=== PATIENT | female | born 1950 | race Two or more races ===

== ENCOUNTER 2019-01-21 17:32 | Emergency (ER) | payer MEDICARE ==
[~2019-01-21] VITALS: Ht 157.5 cm; Wt 68.0 kg
[2019-01-21 17:37] VITALS: BP 150/80
--- NOTE | 2019-01-21 17:47 | NUR ---
ED Nurse Note: Pt came in due to right foot laceration. pt dropped scissor son her right foot and acquired a puncture laceration. No active bleeding. AAO x,4 and ambulatory.
[2019-01-21] MEDS ORDERED: Tetanus/Diptheria/Pertussis IM ONE (18:00)
--- NOTE | 2019-01-21 18:03 | Emergency Room Report ---
History of Present Illness General Chief Complaint: Laceration Source: Patient Present Illness HPI 68-year-old female presents to the emergency department complaining of 7 out of 10 severity localized pain to the dorsum of the right foot distally just proximal to the digits. Patient states status post dropped garden scissors onto her foot which caused her to sustain a laceration. Patient reports bleeding is controlled at this time. She denies taking blood thinning medications. she reports she is not up-to-date with her tetanus vaccination. She is able to bear weight on the foot and walk. She denies suspicion for possible fracture. Patient denies bony pain/tenderness. Pain exacerbated upon palpation no other aggravating or relieving factors. Allergies: Coded Allergies: No Known Allergies (Unverified , 01/21/19) Patient History Past Medical History: see triage record Past Surgical History: none Pertinent Family History: none Now: No Reviewed Nursing Documentation: PMH: Agreed; PSxH: Agreed Nursing Documentation-PMH Past Medical History: No History, Except For Hx Cardiac Problems: Yes - High cholesterol Hx Hypertension: Yes History Of Psychiatric Problem: Yes - Anxiety, Depression Review of Systems All Other Systems: negative except mentioned in HPI Physical Exam Vital Signs Date Time Temp Pulse Resp B/P (MAP) Pulse Ox O2 Delivery O2 Flow Rate FiO2 01/21/19 17:37 98.1 67 20 150/80 (103) 98 Room Air Sp02 EP Interpretation: reviewed, normal General Appearance: no apparent distress, alert, GCS 15, non-toxic Head: normocephalic, atraumatic Eyes: bilateral eye normal inspection, bilateral eye PERRL ENT: hearing grossly normal, normal voice Neck: full range of motion Respiratory: lungs clear, normal breath sounds, speaking full sentences Cardiovascular #1: regular rate, rhythm, normal capillary refill Cardiovascular #2: 2+ dorsalis pedis (R), 2+ dorsalis pedis (L) Musculoskeletal: back normal, gait/station normal, normal range of motion, non- tender - no bony ttp, able to bear weight, flex and extend . Neurologic: alert, oriented x3, responsive, motor strength/tone normal, sensory intact, speech normal, grossly normal Psychiatric: judgement/insight normal Skin: laceration - 0.5 cm laceration that is well approximated and not bleeding at this time. tension pulled to see how deep the wound is and to evaluate for fb. no fb. the wound is not bleeding. Procedures Laceration/Wound Repair Laceration/Wound Repair : Consent: Verbal Wound Location: lower extremity - right dorsal foot Wound's Depth, Shape: superficial, linear Wound Length (cm): 0 Wound Explored: clean Irrigated w/ Saline (ccs): 200 Betadine Prep?: Yes Wound Debrided: None Wound Repaired With: Dermabond Sterile Dressing Applied?: Yes Splint Applied?: No Sling Applied?: No Patient Tolerated: Well Complications: None Medical Decision Making PA Attestation Dr. Fontana Is my supervising Physician whom patient management has been discussed with. Diagnostic Impression: Primary Impression: Laceration ER Course 68-year-old female presents to the emergency department complaining of 7 out of 10 severity localized pain to the dorsum of the right foot distally just proximal to the digits. Patient states status post dropped garden scissors onto her foot which caused her to sustain a laceration. Patient reports bleeding is controlled at this time. She denies taking blood thinning medications. she reports she is not up-to-date with her tetanus vaccination. She is able to bear weight on the foot and walk. She denies suspicion for possible fracture. Patient denies bony pain/tenderness. Pain exacerbated upon palpation no other aggravating or relieving factors. Ddx considered but are not limited to laceration, tendon injury, cellulitis, amputation, foreign body just to name a few. Vital signs: are WNL, pt. is afebrile H&PE are most consistent with: superficial 0.5cm laceration to the dorsum of the right foot ORDERS: none required at this time, the diagnosis is clinical ED INTERVENTIONS: -Tetanus vaccine was administered as pt. vaccination status was unknown. - The wound was copiously irrigated with normal saline, and explored for foreign body for which no FB was found. - The wound was approximated and closed using Dermabond -sterile dressing is applied. Pt. given hard sole ortho shoe and cane Discussed with patient: That we make every effort to approximate the laceration as best as we can so that scarring will be as cosmetically pleasing as possible with our limited cosmetic skill set in the Emergency dept. Regardless of our best efforts there will be scarring after laceration repair. The extent of scarring is unknown at this time. DISCHARGE: At this time pt. is stable for d/c to home. Will provide printed patient care instructions, and any necessary prescriptions. Care plan and follow up instructions have been discussed with the patient prior to discharge. Last Vital Signs Date Time Temp Pulse Resp B/P (MAP) Pulse Ox O2 Delivery O2 Flow Rate FiO2 01/21/19 17:37 98.1 67 20 150/80 98 Room Air Disposition: HOME, SELF-CARE Condition: Stable Scripts Acetaminophen* (TYLENOL EXTRA STRENGTH*) 500 Mg Tablet 500 MG ORAL Q6H, #20 TAB 0 Refills Prov: Jennifer Tinoco 01/21/19 Cephalexin* (KEFLEX*) 500 Mg Capsule 500 MG ORAL EVERY 12 HOURS for 7 Days, #14 CAP 0 Refills Prov: Jennifer Tinoco 01/21/19 Patient Instructions: Nonsutured Laceration Care Additional Instructions: Take medications as directed. Follow up with a Primary Care Provider in 3-5 days, even if your symptoms have resolved. --Please review list of primary care clinics, if you do not already have a primary care provider Return sooner to ED if new symptoms occur, or current symptoms become worse. - Please note that this Emergency Department Report was dictated using [employer] technology software, occasionally this can lead to erroneous entry secondary to interpretation by the dictation equipment. Jennifer Tinoco Jan 21, 2019 18:03
--- NOTE | 2019-01-21 18:31 | NUR ---
ED Nurse Note: Irrigated right foot dried blood with NS and hydrogen peroxide. Patted dry and left open to air.
[2019-01-21] MEDS ORDERED: CEPHALEXIN500 MG ORAL (18:58)
[2019-01-21] MEDS ORDERED: TYLENOL EXTRA500 MG ORAL (18:58)
--- NOTE | 2019-01-21 19:15 | NUR ---
HAND-OFF: Report given to Marta REEVES.
--- NOTE | 2019-01-21 19:40 | NUR ---
ER DISCHARGE NOTE: Patient is cleared to be discharged per ERMD, pt is aox4, on room air, with stable vital signs. provided wound care. pt was given dc and prescription instructions, pt was able to verbalize understanding, pt id bandremoved. pt is able to ambulate with steady gait. pt took all belongings.
[2019-01-21 19:41] VITALS: BP 150/80
== END 2019-01-21 19:41 | disposition home or self-care (01) ==
LOC: EDBD 17:32 → EMR 19:30
DX: S91.311A Laceration without foreign body, right foot, initial encounter (principal); I10 Essential (primary) hypertension; F32.9 Major depressive disorder, single episode, unspecified; F41.9 Anxiety disorder, unspecified; E78.00 Pure hypercholesterolemia, unspecified; Z23 Encounter for immunization; W20.8XXA Other cause of strike by thrown, projected or falling object, initial encounter; Y92.9 Unspecified place or not applicable
CPT/HCPCS: 90471; 90715; 99283

== ENCOUNTER 2020-03-07 23:09 | Emergency (ER) | payer MEDICARE ==
[~2020-03-07] VITALS: Ht 157.5 cm; Wt 66.2 kg
[~2020-03-07 23:09] MED LIST: CEPHALEXIN500 MG ORAL; TYLENOL EXTRA500 MG ORAL
[2020-03-07 23:10] VITALS: BP 135/62
--- NOTE | 2020-03-07 23:10 | NUR ---
ED Nurse Note: patient walked into ED c/o insect bites, patient presents to the ED with multiple rashes primarily on her lower thighs and bilateral legs. patient reports of finding out these rashes for about 1 day now. patient is alert and oriented x4, complains of pain and a hotness on said rashes. denies any discharges on rashes and fever. will continue to monitor
[2020-03-07] MEDS ORDERED: CLINDAMYCIN HC300 MG ORAL (23:35)
[2020-03-07] MEDS ORDERED: MUPIROCIN22 GM TOPIC (23:35)
--- NOTE | 2020-03-07 23:35 | Emergency Room Report ---
History of Present Illness General Chief Complaint: Skin Rash/Abscess Source: Patient Present Illness [facility] This is a 69-year-old female with history high blood pressure. She presents with a chief point of bug bites. She woke up this morning with redness to her lower extremity. No fever or chills but is itching. Nothing made it better pain scratch made it worse. No fever chills but no drainage. No pain. Did not see any bugs biting her. Allergies: Coded Allergies: No Known Allergies (Unverified , 01/21/19) COVID-19 Screening Contact w/high risk pt: No Experienced COVID-19 symptoms?: No COVID-19 Testing performed [employer]: Yes - 2019 COVID-19 Screening: Negative COVID-19 COVID-19 Testing Source: patients' primary Patient History Past Medical History: see triage record, old chart reviewed, HTN Past Surgical History: none Pertinent Family History: none Social History: Denies: smoking Last Menstrual Period: n/a Now: No Immunizations: other Reviewed Nursing Documentation: PMH: Agreed; PSxH: Agreed Nursing Documentation-PMH Past Medical History: No History, Except For Hx Cardiac Problems: Yes - High cholesterol Hx Hypertension: Yes Review of Systems Eye: Denies: eye pain, blurred vision ENT: Denies: ear pain, nose congestion, throat swelling Respiratory: Denies: cough, shortness of breath Cardiovascular: Denies: chest pain, palpitations Gastrointestinal: Denies: abdominal pain, diarrhea, nausea, vomiting Musculoskeletal: Denies: back pain, joint pain Skin: Reports: rash Neurological: Denies: headache, numbness Endocrine: Denies: increased thirst, increased urine Hematologic/Lymphatic: Denies: easy bruising All Other Systems: negative except mentioned in HPI Physical Exam Vital Signs Date Time Temp Pulse Resp B/P (MAP) Pulse Ox O2 Delivery O2 Flow Rate FiO2 03/07/20 23:10 97.9 72 16 137/69 (91) 95 Room Air Vitals normal Sp02 EP Interpretation: reviewed, normal General Appearance: well appearing, no apparent distress, alert Head: normocephalic, atraumatic Eyes: bilateral eye PERRL, bilateral eye EOMI ENT: hearing grossly normal, normal pharynx Neck: full range of motion, supple, no meningismus Respiratory: chest non-tender, lungs clear, normal breath sounds Cardiovascular #1: regular rate, rhythm, no murmur Gastrointestinal: normal bowel sounds, non tender, no mass, no organomegaly, no bruit, non-distended Musculoskeletal: back normal, normal range of motion, gait/station normal Psychiatric: mood/affect normal Skin: other - On both lower extremities, patient had multiple 1 to 2 cm area of erythema. No abscess or crepitus. Medical Decision Making Diagnostic Impression: Primary Impression: Cellulitis and abscess of lower extremity ER Course Patient presents with cellulitis of lower extremity. Most likely MRSA. Will discharge home. Last Vital Signs Date Time Temp Pulse Resp B/P (MAP) Pulse Ox O2 Delivery O2 Flow Rate FiO2 03/07/20 23:10 97.9 72 16 137/69 (91) 95 Room Air Status: improved Disposition: HOME, SELF-CARE Condition: Stable Scripts Mupirocin* (MUPIROCIN*) 22 Gm Oint...g. 1 APPLIC TOPIC THREE TIMES A DAY, #22 GM Prov: Alexandre Goodman MD 03/07/20 Clindamycin Hcl (CLINDAMYCIN HCL) 300 Mg Capsule 300 MG ORAL THREE TIMES A DAY, #21 CAP Prov: Alexandre Goodman MD 03/07/20 Additional Instructions: Keep wound clean. Cleaned first with hydrogen peroxide and apply antibiotic ointment. Follow-up with your doctor in 7 days for recheck. Return if symptoms worsen. Alexandre Goodman MD Mar 07, 2020 23:35
[2020-03-07 23:40] VITALS: BP 128/60
--- NOTE | 2020-03-07 23:40 | NUR ---
ER DISCHARGE NOTE: Patient is cleared to be discharged per ERMD, pt is aox4, on room air, with stable vital signs. pt was given dc and prescription instructions, pt was able to verbalize understanding, pt id band removed without complications. pt is able to ambulate with steady gait. pt took all belongings.
[2020-03-07] MEDS ORDERED: Clindamycin 150mg cap ORAL ONE (23:45)
== END 2020-03-07 23:40 | disposition home or self-care (01) ==
LOC: EMR 23:35
DX: L03.119 Cellulitis of unspecified part of limb (principal); I10 Essential (primary) hypertension; E78.00 Pure hypercholesterolemia, unspecified
CPT/HCPCS: 99282